=== PATIENT | male | born 1955 | race Caucasian/White ===

== ENCOUNTER 2025-04-22 08:38 | Day surgery (SDC) | payer MEDICARE, SELFPAY ==
[2025-04-17 10:10] VITALS: BMI 28.8
[2025-04-17 10:50] LABS: Hematocrit 43.7 % (39.0-52.0); Hemoglobin 14.7 g/dL (13.0-18.0); Mean Corp Hgb Conc. 33.6 g/dL (33.0-37.0); Mean Corpuscular Volume 88.3 fL (80.0-94.0); Nucleated Red Blood Cells % 0 % (-); Platelet Count 218 10^3/uL (130-400); Red Cell Dist. Width 12.6 % (11.5-14.5)
[2025-04-17 11:32] LABS: ALT (SGPT) 49 U/L (0-50); AST (SGOT) 36 U/L (17-59); Albumin 4.5 g/dl (3.5-5.0); Alkaline Phosphatase 30 U/L (38-126); Blood Urea Nitrogen 22 mg/dl (9-20); Calcium 11.0 mg/dl (8.4-10.2); Carbon Dioxide 27 mmol/L (22-30); Chloride 107 mmol/L (98-107); Estimated Creatinine Clearance 66 ml/min; Glucose 118 mg/dl (70-99); Potassium 4.9 mmol/L (3.5-5.1); Sodium 141 mmol/L (135-145); Total Protein 6.9 g/dl (6.3-8.2); eGFR > 60.00
[2025-04-22] VITALS (9 sets, daily range): BP systolic 110–134; BP diastolic 65–78
[2025-04-22 09:23] LABS: Glucose - Point of Care 147 mg/dl (70-99)
--- NOTE | 2025-04-22 11:39 | ITS.CL.CATH ---
[employer] - Catheterization
Cardiac Catheterization
Procedure Report:
CARDIAC CATHETERIZATION REPORT
Date of Procedure: 04/22/2025
Referring: George Chavez D.O.
Indication: Dyspnea on exertion, decreased exercise tolerance, known coronary artery disease status post CABG x 4 ([place] to LAD, LRA to D3, sequential SVG to RI to RPL), abnormal stress test.
PROCEDURE:
1. Right heart catheterization.
2. Coronary angiography.
3. Left heart catheterization.
4. Bypass angiography.
A total of 25 minutes of procedural/moderate sedation was utilized. An independent healthcare or medical was present to assist with and help manage the patient's level of consciousness and physiologic status.
ACCESS:
1. 6 [place]e right common femoral artery using a modified Seldinger technique with a micropuncture kit under ultrasound guidance.
2. 5 [place]e right common femoral vein using a modified Seldinger technique with a micropuncture kit under ultrasound guidance.
CATHETERS:
1. 5 [place]e balloon wedge.
2. 5 Nepalese JL 4.
3. 5 [place]alese JR4.
4. 5 [place]e ROBE.
HEMODYNAMIC DATA
Weight (kg): 85.9
AO (s/d/x, mmHg): 123/62/85
LV (s/x, mmHg): 123/18 (A wave to 31)
PCWP (a/v/x, mmHg): 28/24/20
PA (s/d/x, mmHg): 38/20/26
RV (s/x, mmHg): 38/10
RA (a/v/x, mmHg): 15/12/10
SVC SvO2 (%): 69.4
IVC SvO2 (%): Not obtained.
RA SvO2 (%): Not obtained.
RV SvO2 (%): Not obtained.
PA SvO2 (%): 69.9
SaO2 (%): 93.8
Hbg (g/dL): 15.5
ISAI
CO (L/min): 4.42
CI (L/min/m2): 2.21
Thermodilution
CO (L/min): Not performed.
CI (L/min/m2): Not performed.
TPG (mmHg): 6
PVR ([place] Units): 1.36
SVR (dynes*seconds*cm^-5): 1357
AVO2 Diff (Volume %): 5.04
AV gradient (x, mmHg): None.
AV area (cm2): Normal.
MV gradient (x, mmHg): Not obtained.
MV area (cm2): Not obtained.
LEFT VENTRICULOGRAPHY: Not performed.
AORTOGRAPHY: Not performed.
CORONARY ANGIOGRAPHY
Dominance: Right.
Left Main: Normal size, trifurcating vessel. There is no coronary artery disease.
LAD: Normal size vessel giving rise to several small diagonals. The vessel is chronically totally occluded immediately after the master septal. The distal vessel is supplied by patent [place] graft. A diagonal is supplied by a patent left radial
graft.
Ramus: Medium size vessel supplying the majority of the lateral wall. The vessel is chronically totally occluded at its origin. The vessel supplied by a patent sequential vein graft.
Circumflex: Small size, nondominant vessel giving rise to several vestigial obtuse marginals. There is no coronary artery disease.
RCA: Normal size, dominant vessel. There is an 80% lesion in the mid RCA leading into the distal RCA where there is a densely calcified 90% lesion. There is a rapid tapering of the small RPDA and chronic total occlusion of the right
posterolateral branch. The terminal RPL is supplied by a patent sequential vein graft.
BYPASS GRAFT ANGIOGRAPHY
[place] to LAD: Normal size graft with end-to-side anastomosis to the distal LAD. There is no stenosis or graft degeneration.
LRA to diagonal: Normal size graft with end-to-side anastomosis to the diagonal. There is some contrast stasis with engagement of the catheter though no obvious catheter dampening, raising the possibility of an ostial graft stenosis.
SVG to RI to RPL: Normal size graft with [id number] anastomosis to the ramus intermedius then an end-to-side anastomosis to the RPL. There is no evidence of stenosis or graft degeneration.
INTERVENTIONS
None.
Closure Device: Manual pressure for the right common femoral artery and vein.
Radiation dose (mGy): 447
DAP (cm2.Gy): 25.1
Fluoroscopy time (minutes): 9.4
CONCLUSIONS:
1. Right dominant circulation with chronic total occlusion of the mid LAD and ostial ramus, and 80% lesion in the mid RCA followed by a densely calcified 90% lesion in the distal RCA and a chronic total occlusion of the right posterolateral branch,
status post prior CABG x 4 (patent [place] to LAD, LRA to diagonal, sequential SVG to RI to RPL) with no visible graft degeneration or stenosis. There is some contrast hanging up with engagement of the left radial graft raising the possibility of an
ostial stenosis, though it is not angiographically obvious.
2. Moderately elevated filling pressures (LVEDP = 18 mmHg, PCWP = 20 mmHg at 85.9 kg) with evidence of diastolic dysfunction (A wave to 31 mmHg).
3. Preserved cardiac index (2.21 L/min/m�).
RECOMMENDATIONS:
1. Expectant management after cardiac catheterization via right common femoral approach.
2. Limited weight bearing for one week.
3. Continue aggressive secondary prevention with high-dose, high potency statin, ezetimibe and icosapent ethyl. Goal LDL <55, goal triglycerides <150.
4. Start furosemide 20 mg p.o. daily for elevated filling pressures. BMP in 1 week.
5. Maintain OMT/GDMT as hemodynamics will tolerate including beta-mel, calcium channel mel DAVE inhibitor and SGLT2 inhibitor.
6. If the patient does not respond to diuresis, we can consider addition of isosorbide mononitrate to assist with potential left radial artery ostial lesion.
7. If the patient does not respond to long-acting nitrates after diuretics, we can revisit his coronary angiography and potentially intervene on his left radial ostium, though I remain unconvinced that it is a significant lesion at this time.
8. Stable for outpatient follow-up.
Copy to: George Chavez D.O., Rolando Lainez D.O.
Shay Rajan DO, FACC, FACP
[2025-04-22 13:21] LABS: Glucose - Point of Care 121 mg/dl (70-99)
== END 2025-04-22 15:00 | disposition home or self-care (01) ==
LOC: CATH 08:38
PROVIDERS: ATTENDING PHYSICIAN Internal Medicine Cardiovascular Disease; FAMILY PHYSICIAN Internal Medicine; REFERRING PHYSICIAN Internal Medicine Cardiovascular Disease
DX: R06.09 Other forms of dyspnea (principal); Z95.1 Presence of aortocoronary bypass graft; I25.10 Atherosclerotic heart disease of native coronary artery without angina pectoris; E11.9 Type 2 diabetes mellitus without complications; K76.0 Fatty (change of) liver, not elsewhere classified; E78.1 Pure hyperglyceridemia; G47.00 Insomnia, unspecified; I25.2 Old myocardial infarction; I25.82 Chronic total occlusion of coronary artery; I45.10 Unspecified right bundle-branch block; Z79.4 Long term (current) use of insulin; Z79.82 Long term (current) use of aspirin; Z79.84 Long term (current) use of oral hypoglycemic drugs; Z79.899 Other long term (current) drug therapy; Z85.828 Personal history of other malignant neoplasm of skin; Z86.0100 Personal history of colon polyps, unspecified; Z86.73 Personal history of transient ischemic attack (TIA), and cerebral infarction without residual deficits; Z87.891 Personal history of nicotine dependence; Z95.5 Presence of coronary angioplasty implant and graft
CPT/HCPCS: 99152; 99153; 36415; 80053; 82962; 85025; 93005; 93461; C1894; Q9967